=== PATIENT | female | born 1945 | race Caucasian/White ===

== ENCOUNTER 2020-08-25 09:36 | Emergency (ER) | payer MEDICARE, OTHER ==
[2020-08-25] MEDS ORDERED: Sodium Chloride 0.9% 10 ML Syringe FLUSH PRN ×2 (09:39→11:15)
[2020-08-25] MEDS ORDERED: Acetaminophen 325 MG Tab PO ONE (09:51)
[2020-08-25] MEDS ORDERED: Acetaminophen 650 MG Supp RECTAL ONE (09:59)
--- NOTE | 2020-08-25 09:59 | EDM.PDOC ---
ED HPI GENERAL MEDICAL PROBLEM - General Chief Complaint: Neuro Symptoms/Deficits Stated Complaint: VOMITTING/ABDOMINAL PAIN/SHAKING Time Seen by Provider: 08/25/20 09:39 Source of Information: Reports: Patient, Family History Limitations: Reports: Altered Mental Status - History of Present Illness INITIAL COMMENTS - FREE TEXT/NARRATIVE: The patient presents to the ER with her daughter in law. She was coming in to the clinic to be evaluated for some right flank pain. On the way to the clinic she became more confused and had generalized weakness. My nurse had a very hard time getting her out of the car. A stroke alert was called and I went right into the room. She had slurred speech and she was confused. We got her in the bed and she needed assistance. She was leaning back when we got her up. She could not really answer any of my questions She would follow commands. She had generalized weakness but no one sided weakness. She has a fever or 101. According to clinic notes he has no health problems and she is only on vitamins. Onset: Gradual Duration: Hour(s): Severity: Moderate Improves with: Reports: None Worsens with: Reports: None Associated Symptoms: Reports: Confusion, Fever/Chills - Related Data Allergies Allergy/AdvReac Type Severity Reaction Status Date / Time No Known Allergies Allergy Verified 08/25/20 09:51 Home Meds: Home Meds . [No Known Home Meds] 08/25/20 [History] ED ROS GENERAL - Review of Systems Review Of Systems: Unable To Obtain Reason Not Obtained: Patient is confused ED EXAM, NEURO - Physical Exam Exam: See Below Exam Limited By: Altered Mental Status General Appearance: Alert (but confused) Ears: Normal External Exam Nose: Normal Inspection Head Exam: Atraumatic, Normocephalic Neck: Normal Inspection Respiratory/Chest: No Respiratory Distress, Lungs Clear, Normal Breath Sounds Cardiovascular: Regular Rate, Rhythm, No Edema, No Murmur GI/Abdominal: Soft, Non-Tender, No Organomegaly, No Mass Neurological: Alert, Other (Confused and slurring her words. She also had generalized weakness with no side more weak then the other.) Extremities: Normal Inspection #1 Interpretation EKG Date: 08/25/20 Time: 09:56 Rhythm: Other (sinus tachycardia) Rate (Beats/Min): 125 Williams: LAD-Left Williams Deviation P-Wave: Present QRS: Normal ST-T: Normal QT: Normal EKG Interpretation Comments: Q waves in the inferior leads Course - Vital Signs Last Recorded V/S: Last Vital Signs Temp 98 F 08/25/20 12:00 Pulse 100 08/25/20 12:00 Resp 16 08/25/20 12:00 BP 104/47 L 08/25/20 12:00 Pulse Ox 91 L 08/25/20 12:00 - Orders/Labs/Meds Orders: Active Orders 24 hr Category Date Time Status Cardiac Monitoring [RC] . DIRECTED Care 08/25/20 09:39 Active EKG Documentation Completion [RC] STAT Care 08/25/20 09:40 Active Oxygen Therapy [RC] PRN Care 08/25/20 09:39 Active Peripheral IV Care [RC] . DIRECTED Care 08/25/20 09:40 Active CULTURE BLOOD [BC] Stat Lab 08/25/20 10:07 Received CULTURE BLOOD [BC] Stat Lab 08/25/20 10:12 Received CULTURE URINE [RM] Stat Lab 08/25/20 10:40 Received LACTIC ACID [CHEM] Stat Lab 08/25/20 12:55 Ordered Lactated Ringers [Ringers, Lactated] 1,000 ml Med 08/25/20 12:00 Active IV ASDIRECTED Sodium Chloride 0.9% [Normal Saline] 1,000 ml Med 08/25/20 10:00 Active IV ASDIRECTED Sodium Chloride 0.9% [Normal Saline] 100 ml Med 08/25/20 11:15 Active IV ASDIRECTED Sodium Chloride 0.9% [Saline Flush] Med 08/25/20 09:39 Active 10 ml FLUSH ASDIRECTED PRN Sodium Chloride 0.9% [Saline Flush] Med 08/25/20 11:15 Active 10 ml FLUSH ONETIME PRN Blood Culture x2 Reflex Set [OM.PC] Stat Oth 08/25/20 09:52 Ordered Peripheral IV Insertion Adult [OM.PC] Stat Oth 08/25/20 09:39 Ordered Medication Orders Sodium Chloride (Normal Saline) 1,000 mls @ 150 mls/hr IV ASDIRECTED GABRIELA Last Infusion: 08/25/20 10:23 Dose: 999 mls/hr Documented by: Admin: 08/25/20 10:14 Dose: 150 mls/hr Documented by: EBERELI Sodium Chloride (Normal Saline) 100 mls @ 75 mls/hr IV ASDIRECTED GABRIELA Last Admin: 08/25/20 11:47 Dose: 75 mls/hr Documented by: JENNI Lactated Ringer's (Ringers, Lactated) 1,000 mls @ 150 mls/hr IV ASDIRECTED GABRIELA Last Admin: 08/25/20 12:05 Dose: 150 mls/hr Documented by: EBERELI Sodium Chloride (Saline Flush) 10 ml FLUSH ASDIRECTED PRN PRN Reason: Keep Vein Open Last Admin: 08/25/20 10:15 Dose: 10 ml Documented by: EBERELI Sodium Chloride (Saline Flush) 10 ml FLUSH ONETIME PRN PRN Reason: IV FLUSH Last Admin: 08/25/20 11:46 Dose: 10 ml Documented by: JENNI Labs: Laboratory Tests 08/25/20 08/25/20 08/25/20 Range/Units 09:49 09:55 09:55 WBC 3.57 L (3.98-10.04) K/mm3 RBC 4.34 (3.98-5.22) M/mm3 Hgb 13.7 (11.2-15.7) gm/dl Hct 41.3 (34.1-44.9) % MCV 95.2 H (79.4-94.8) fl MCH 31.6 (25.6-32.2) pg MCHC 33.2 (32.2-35.5) g/dl RDW Std Deviation 43.2 (36.4-46.3) fL Plt Count 173 L (182-369) K/mm3 MPV 9.8 (9.4-12.3) fl Neut % (Auto) 89.9 H (34.0-71.1) % Lymph % (Auto) 9.0 L (19.3-51.7) % [place] % (Auto) 0.8 L (4.7-12.5) % Eos % (Auto) 0 L (0.7-5.8) Baso % (Auto) 0.0 L (0.1-1.2) % Neut # (Auto) 3.21 (1.56-6.13) K/mm3 Lymph # (Auto) 0.32 L (1.18-3.74) K/mm3 [place] # (Auto) 0.03 L (0.24-0.36) K/mm3 Eos # (Auto) 0.00 L (0.04-0.36) K/mm3 Baso # (Auto) 0.00 L (0.01-0.08) K/mm3 Manual Slide Review Abnormal smear PT 10.9 (9.7-12.0) SECONDS INR 1.02 APTT 20.9 L (21.7-31.4) SECONDS D-Dimer, Quantitative 4.01 H (0.19-0.50) mg/L Sodium (136-145) mEq/L Potassium (3.5-5.1) mEq/L Chloride (98-107) mEq/L Carbon Dioxide (21-32) mEq/L Anion Gap (5-15) BUN (7-18) mg/dL Creatinine (0.55-1.02) mg/dL Est Cr Clr Drug Dosing Estimated GFR (MDRD) (>60) mL/min BUN/Creatinine Ratio (14-18) Glucose (83-115) mg/dL Lactic Acid (0.4-2.0) mmol/L Calcium (8.5-10.1) mg/dL Magnesium (1.8-2.4) mg/dl Ferritin (8-252) ng/ml Total Bilirubin (0.2-1.0) mg/dL AST (15-37) U/L ALT (14-59) U/L Alkaline Phosphatase (46-116) U/L Lactate Dehydrogenase (81-234) U/L Troponin I (0.00-0.056) ng/mL C-Reactive Protein (<1.0) mg/dL Total Protein (6.4-8.2) g/dl Albumin (3.4-5.0) g/dl Globulin gm/dL Albumin/Globulin Ratio (1-2) Lipase (73-393) U/L Urine Color (Yellow) Urine Appearance (Clear) Urine pH (5.0-8.0) Ur Specific [address] (1.005-1.030) Urine Protein (Negative) Urine Glucose (UA) (Negative) Urine Ketones (Negative) Urine Occult Blood (Negative) Urine Nitrite (Negative) Urine Bilirubin (Negative) Urine Urobilinogen (0.2-1.0) Ur Leukocyte Esterase (Negative) U Hyaline Cast (Auto) (0-5) /lpf Urine RBC (0-5) /hpf Urine WBC (0-5) /hpf Urine WBC Clumps (NOT SEEN) /hpf Ur Epithelial Cells (0-5) /hpf Urine Bacteria (FEW) /hpf Urine Mucus (FEW) /hpf Urine Opiates Screen (RHQCBW=808) Ur Buprenorphine Scrn (CUTOFF=10) Ur Oxycodone Screen (XLX6NG=851) Urine Methadone Screen (WTECCR=886) Ur Propoxyphene Screen (CZHHQE=565) Ur Barbiturates Screen (KFJCNQ=150) Ur Tricyclics Screen (UMVOVM=552) Ur Phencyclidine Scrn (CUTOFF=25) Ur Amphetamine Screen (DQEMEB=362) U Methamphetamines Scrn (IFKBKK=402) U Benzodiazepines Scrn (CPPCPO=879) U Cocaine Metab Screen (GXMTUJ=700) U Marijuana (THC) Screen (CUTOFF=50) Ethyl Alcohol (0.00) gm% Influenza Type A RNA Negative (NEGATIVE) Influenza Type B RNA Negative (NEGATIVE) SARS-CoV-2 RNA (KIMBERLY) Positive H (NEGATIVE) 08/25/20 08/25/20 08/25/20 Range/Units 09:55 09:55 09:55 WBC (3.98-10.04) K/mm3 RBC (3.98-5.22) M/mm3 Hgb (11.2-15.7) gm/dl Hct (34.1-44.9) % MCV (79.4-94.8) fl MCH (25.6-32.2) pg MCHC (32.2-35.5) g/dl RDW Std Deviation (36.4-46.3) fL Plt Count (182-369) K/mm3 MPV (9.4-12.3) fl Neut % (Auto) (34.0-71.1) % Lymph % (Auto) (19.3-51.7) % [place] % (Auto) (4.7-12.5) % Eos % (Auto) (0.7-5.8) Baso % (Auto) (0.1-1.2) % Neut # (Auto) (1.56-6.13) K/mm3 Lymph # (Auto) (1.18-3.74) K/mm3 [place] # (Auto) (0.24-0.36) K/mm3 Eos # (Auto) (0.04-0.36) K/mm3 Baso # (Auto) (0.01-0.08) K/mm3 Manual Slide Review PT (9.7-12.0) SECONDS INR APTT (21.7-31.4) SECONDS D-Dimer, Quantitative (0.19-0.50) mg/L Sodium 139 (136-145) mEq/L Potassium 4.1 (3.5-5.1) mEq/L Chloride 104 (98-107) mEq/L Carbon Dioxide 28 (21-32) mEq/L Anion Gap 11.1 (5-15) BUN 13 (7-18) mg/dL Creatinine 1.1 H (0.55-1.02) mg/dL Est Cr Clr Drug Dosing TNP Estimated GFR (MDRD) 49 (>60) mL/min BUN/Creatinine Ratio 11.8 L (14-18) Glucose 114 (83-115) mg/dL Lactic Acid 2.1 H* (0.4-2.0) mmol/L Calcium 9.5 (8.5-10.1) mg/dL Magnesium 1.5 L (1.8-2.4) mg/dl Ferritin (8-252) ng/ml Total Bilirubin 1.1 H (0.2-1.0) mg/dL AST 23 (15-37) U/L ALT 22 (14-59) U/L Alkaline Phosphatase 111 (46-116) U/L Lactate Dehydrogenase 238 H (81-234) U/L Troponin I < 0.017 (0.00-0.056) ng/mL C-Reactive Protein 3.1 H* (<1.0) mg/dL Total Protein 6.6 (6.4-8.2) g/dl Albumin 3.7 (3.4-5.0) g/dl Globulin 2.9 gm/dL Albumin/Globulin Ratio 1.3 (1-2) Lipase 110 (73-393) U/L Urine Color (Yellow) Urine Appearance (Clear) Urine pH (5.0-8.0) Ur Specific [address] (1.005-1.030) Urine Protein (Negative) Urine Glucose (UA) (Negative) Urine Ketones (Negative) Urine Occult Blood (Negative) Urine Nitrite (Negative) Urine Bilirubin (Negative) Urine Urobilinogen (0.2-1.0) Ur Leukocyte Esterase (Negative) U Hyaline Cast (Auto) (0-5) /lpf Urine RBC (0-5) /hpf Urine WBC (0-5) /hpf Urine WBC Clumps (NOT SEEN) /hpf Ur Epithelial Cells (0-5) /hpf Urine Bacteria (FEW) /hpf Urine Mucus (FEW) /hpf Urine Opiates Screen (ZVTUGV=410) Ur Buprenorphine Scrn (CUTOFF=10) Ur Oxycodone Screen (ELA5ZZ=599) Urine Methadone Screen (IMGJES=472) Ur Propoxyphene Screen (OFWKQD=761) Ur Barbiturates Screen (SHQQCS=662) Ur Tricyclics Screen (SKKPKL=271) Ur Phencyclidine Scrn (CUTOFF=25) Ur Amphetamine Screen (XVETNQ=196) U Methamphetamines Scrn (ALUCOU=382) U Benzodiazepines Scrn (XPBFAF=918) U Cocaine Metab Screen (HTMQOY=439) U Marijuana (THC) Screen (CUTOFF=50) Ethyl Alcohol 0.00 (0.00) gm% Influenza Type A RNA (NEGATIVE) Influenza Type B RNA (NEGATIVE) SARS-CoV-2 RNA (KIMBERLY) (NEGATIVE) 08/25/20 08/25/20 08/25/20 Range/Units 09:55 10:30 10:30 WBC (3.98-10.04) K/mm3 RBC (3.98-5.22) M/mm3 Hgb (11.2-15.7) gm/dl Hct (34.1-44.9) % MCV (79.4-94.8) fl MCH (25.6-32.2) pg MCHC (32.2-35.5) g/dl RDW Std Deviation (36.4-46.3) fL Plt Count (182-369) K/mm3 MPV (9.4-12.3) fl Neut % (Auto) (34.0-71.1) % Lymph % (Auto) (19.3-51.7) % [place] % (Auto) (4.7-12.5) % Eos % (Auto) (0.7-5.8) Baso % (Auto) (0.1-1.2) % Neut # (Auto) (1.56-6.13) K/mm3 Lymph # (Auto) (1.18-3.74) K/mm3 [place] # (Auto) (0.24-0.36) K/mm3 Eos # (Auto) (0.04-0.36) K/mm3 Baso # (Auto) (0.01-0.08) K/mm3 Manual Slide Review PT (9.7-12.0) SECONDS INR APTT (21.7-31.4) SECONDS D-Dimer, Quantitative (0.19-0.50) mg/L Sodium (136-145) mEq/L Potassium (3.5-5.1) mEq/L Chloride (98-107) mEq/L Carbon Dioxide (21-32) mEq/L Anion Gap (5-15) BUN (7-18) mg/dL Creatinine (0.55-1.02) mg/dL Est Cr Clr Drug Dosing Estimated GFR (MDRD) (>60) mL/min BUN/Creatinine Ratio (14-18) Glucose (83-115) mg/dL Lactic Acid (0.4-2.0) mmol/L Calcium (8.5-10.1) mg/dL Magnesium (1.8-2.4) mg/dl Ferritin 105 (8-252) ng/ml Total Bilirubin (0.2-1.0) mg/dL AST (15-37) U/L ALT (14-59) U/L Alkaline Phosphatase (46-116) U/L Lactate Dehydrogenase (81-234) U/L Troponin I (0.00-0.056) ng/mL C-Reactive Protein (<1.0) mg/dL Total Protein (6.4-8.2) g/dl Albumin (3.4-5.0) g/dl Globulin gm/dL Albumin/Globulin Ratio (1-2) Lipase (73-393) U/L Urine Color [place] H (Yellow) Urine Appearance Slt cloudy H (Clear) Urine pH 8.5 H (5.0-8.0) Ur Specific [address] 1.020 (1.005-1.030) Urine Protein 2+ H (Negative) Urine Glucose (UA) Negative (Negative) Urine Ketones 1+ H (Negative) Urine Occult Blood 3+ H (Negative) Urine Nitrite Positive H (Negative) Urine Bilirubin Negative (Negative) Urine Urobilinogen 0.2 (0.2-1.0) Ur Leukocyte Esterase 1+ H (Negative) U Hyaline Cast (Auto) 0-5 (0-5) /lpf Urine RBC 75-100 H (0-5) /hpf Urine WBC 10-20 H (0-5) /hpf Urine WBC Clumps Few (NOT SEEN) /hpf Ur Epithelial Cells 0-5 (0-5) /hpf Urine Bacteria Moderate H (FEW) /hpf Urine Mucus Not seen (FEW) /hpf Urine Opiates Screen Negative (XNGCQS=672) Ur Buprenorphine Scrn Negative (CUTOFF=10) Ur Oxycodone Screen Negative (LAZ2OS=323) Urine Methadone Screen Negative (LKGWTJ=329) Ur Propoxyphene Screen Negative (BHTEKM=183) Ur Barbiturates Screen Negative (QWNFWT=176) Ur Tricyclics Screen Negative (VSVXVN=982) Ur Phencyclidine Scrn Negative (CUTOFF=25) Ur Amphetamine Screen Negative (OLVHKS=560) U Methamphetamines Scrn Negative (YOEJUU=098) U Benzodiazepines Scrn Negative (PTHGXJ=261) U Cocaine Metab Screen Negative (CAZWAI=236) U Marijuana (THC) Screen Negative (CUTOFF=50) Ethyl Alcohol (0.00) gm% Influenza Type A RNA (NEGATIVE) Influenza Type B RNA (NEGATIVE) SARS-CoV-2 RNA (KIMBERLY) (NEGATIVE) Meds: Medications Generic Name Dose Route Start Last Admin Trade Name Freq PRN Reason Stop Dose Admin Sodium Chloride 1,000 mls @ 150 mls/hr 08/25/20 10:00 08/25/20 10:23 Normal Saline IV 999 mls/hr ASDIRECTED GABRIELA Infusion Sodium Chloride 100 mls @ 75 mls/hr 08/25/20 11:15 08/25/20 11:47 Normal Saline IV 75 mls/hr ASDIRECTED GABRIELA Administration Lactated Ringer's 1,000 mls @ 150 mls/hr 08/25/20 12:00 08/25/20 12:05 Ringers, Lactated IV 150 mls/hr ASDIRECTED GABRIELA Administration Sodium Chloride 10 ml 08/25/20 09:39 08/25/20 10:15 Saline Flush FLUSH 10 ml ASDIRECTED PRN Administration Keep Vein Open Sodium Chloride 10 ml 08/25/20 11:15 08/25/20 11:46 Saline Flush FLUSH 10 ml ONETIME PRN Administration IV FLUSH Discontinued Medications Generic Name Dose Route Start Last Admin Trade Name Ladi PRN Reason Stop Dose Admin Acetaminophen 975 mg 08/25/20 09:51 08/25/20 10:06 Tylenol PO 08/25/20 09:52 Not Given NOW ONE Acetaminophen 650 mg 08/25/20 09:59 08/25/20 10:23 Tylenol RECTAL 08/25/20 10:00 650 mg NOW ONE Administration Sodium Chloride 1,000 mls @ 1,000 mls/hr 08/25/20 10:16 08/25/20 10:24 Normal Saline IV 08/25/20 11:15 Not Given ONETIME ONE Ceftriaxone Sodium 2 gm/ 100 mls @ 200 mls/hr 08/25/20 10:50 08/25/20 11:07 Sodium Chloride IV 08/25/20 11:19 200 mls/hr ONETIME ONE Administration Lactated Ringer's Confirm 08/25/20 12:01 08/25/20 12:04 Ringers, Lactated Administered 08/25/20 12:02 Not Given Dose 1,000 mls @ as directed .ROUTE .STK-MED ONE Iopamidol 100 ml 08/25/20 11:15 08/25/20 11:46 Isovue-370 (76%) IVPUSH 08/25/20 11:16 100 ml ONETIME ONE Administration Ondansetron HCl 4 mg 08/25/20 10:02 08/25/20 10:14 Zofran IVPUSH 08/25/20 10:03 4 mg ONETIME ONE Administration Ondansetron HCl Confirm 08/25/20 10:02 08/25/20 10:06 Zofran Administered 08/25/20 10:03 Not Given Dose 4 mg .ROUTE .STK-MED ONE - Re-Assessments/Exams Free Text/Narrative Re-Assessment/Exam: 08/25/20 10:14 A stroke alert was called. The patient's last time known well was about 15 minutes before arrival. I ordered an EKG, CT of her head, CXR, labs, blood cultures. lactic acid, COVID 19, UA and tylenol. She did start vomiting so I ordered zofran 4mg IV. 08/25/20 11:38 Her WBC was low at 3.57. Her D-dimer was elevated at 4.01. Her creatinine is elevated at 1.1. Her lactic acid is elevated at 2.1. Her magnesium is low at 1.5. Her LDH is elevated at 238. Her troponin is negative. Her CRP is elevated at 3.1. Her lipase is normal. Her UA is positive for UTI. Her UDS is negative and her ETOH is 0. Her flu is negative. She is COVID positive. She was diagnosed with COVID back in June so I feel she is positive but not having active disease. Her CXR looks good. She does have a UTI and sepsis. I ordered a CT of her abdomen and pelvis and she has a 5mm proximal left ureteral stone. Other findings believed to be nonacute. Her D-dimer is elevated at 4.01. Her oxygen saturations were also low at 84% and she required oxygen. I have ordered a CT angio of her chest. I am waiting for that now. I also gave her rocephin 2 grams IV after the blood cultures. The CT of her head shows nothing acute. 08/25/20 12:[address] angio of her chest shows no findings of pulmonary embolism. Other findings believed to be nonacute. The patient needs to be admitted but needs to be where there is a urologist. I will try [facility] in [place]. 08/25/20 12:[address] Slaughter the hospitalist and he accepted the patient. Departure - Departure Time of Disposition: 12:50 Disposition: DC/Tfer to [facility] 02 Condition: Serious Clinical Impression: Ureteral colic, Ureteral calculus, left Sepsis Qualifiers: Sepsis type: sepsis due to unspecified organism Sepsis acute organ dysfunction status: unspecified Qualified Code(s): A41.9 - Sepsis, unspecified organism UTI (urinary tract infection) Qualifiers: Urinary tract infection type: acute cystitis Hematuria presence: with hematuria Qualified Code(s): N30.01 - Acute cystitis with hematuria - Discharge Information Referrals: Dilma Zarate MD [Primary Care Provider] - Forms: ED Department Discharge Sepsis Event Note (ED) - Evaluation Sepsis Screening Result: No Definite Risk - Focused Exam Vital Signs: Vital Signs Temp Temp Pulse Resp BP Pulse Ox 08/25/20 12:00 98 F 100 16 104/47 L 91 L 08/25/20 10:53 99.7 F 08/25/20 10:45 100.2 F 100 18 113/95 H 94 L 12/09/20 10:23 101.2 F H 08/25/20 09:40 101.2 F H 126 H 30 H 127/72 90 L - My Orders Last 24 Hours: My Active Orders 08/25/20 09:39 Cardiac Monitoring [RC] . DIRECTED Oxygen Therapy [RC] PRN Sodium Chloride 0.9% [Saline Flush] 10 ml FLUSH ASDIRECTED PRN Peripheral IV Insertion Adult [OM.PC] Stat 08/25/20 09:40 EKG Documentation Completion [RC] STAT Peripheral IV Care [RC] . DIRECTED 08/25/20 09:52 Blood Culture x2 Reflex Set [OM.PC] Stat 08/25/20 10:00 Sodium Chloride 0.9% [Normal Saline] 1,000 ml IV ASDIRECTED 08/25/20 10:07 CULTURE BLOOD [BC] Stat 08/25/20 10:12 CULTURE BLOOD [BC] Stat 08/25/20 10:40 CULTURE URINE [RM] Stat 08/25/20 11:15 Sodium Chloride 0.9% [Normal Saline] 100 ml IV ASDIRECTED Sodium Chloride 0.9% [Saline Flush] 10 ml FLUSH ONETIME PRN 08/25/20 12:00 Lactated Ringers [Ringers, Lactated] 1,000 ml IV ASDIRECTED 08/25/20 12:55 LACTIC ACID [CHEM] Stat - Assessment/Plan Last 24 Hours: My Active Orders 08/25/20 09:39 Cardiac Monitoring [RC] . DIRECTED Oxygen Therapy [RC] PRN Sodium Chloride 0.9% [Saline Flush] 10 ml FLUSH ASDIRECTED PRN Peripheral IV Insertion Adult [OM.PC] Stat 08/25/20 09:40 EKG Documentation Completion [RC] STAT Peripheral IV Care [RC] . DIRECTED 08/25/20 09:52 Blood Culture x2 Reflex Set [OM.PC] Stat 08/25/20 10:00 Sodium Chloride 0.9% [Normal Saline] 1,000 ml IV ASDIRECTED 08/25/20 10:07 CULTURE BLOOD [BC] Stat 08/25/20 10:12 CULTURE BLOOD [BC] Stat 08/25/20 10:40 CULTURE URINE [RM] Stat 08/25/20 11:15 Sodium Chloride 0.9% [Normal Saline] 100 ml IV ASDIRECTED Sodium Chloride 0.9% [Saline Flush] 10 ml FLUSH ONETIME PRN 08/25/20 12:00 Lactated Ringers [Ringers, Lactated] 1,000 ml IV ASDIRECTED 08/25/20 12:55 LACTIC ACID [CHEM] Stat
[2020-08-25] MEDS ORDERED: Sodium Chloride 0.9% 1,000 ML IV SCH (10:00)
[2020-08-25] MEDS ORDERED: Ondansetron 4 MG/2 ML SDV ONE (10:02)
[2020-08-25] MEDS ORDERED: Ondansetron 4 MG/2 ML SDV IVPUSH ONE (10:02)
--- NOTE | 2020-08-25 10:06 | CT ---
Head CT Technique: Multiple axial sections through the brain were obtained. Intravenous contrast was not utilized. Comparison: No prior intracranial imaging is available. Findings: Mild motion artifact is present. Intracranial: Ventricles along with basal cisterns and sulci over the convexities are mildly prominent. Scattered areas of diminished density are seen within the periventricular and subcortical white matter which is most likely due to small vessel ischemic demyelination change. No other abnormal parenchymal densities are definitely appreciated. There is no evidence of intracranial hemorrhage. No midline shift or mass-effect is appreciated. Osseous: Mild areas of mucosal thickening and retention cyst are seen within both sides of the sphenoid sinus. Mild nasal septal deviation is seen. Mastoid sinuses are clear as seen. No acute calvarial abnormality is appreciated. Impression: 1. Senescent change as noted above and mild motion artifact. 2. Nothing acute is definitely appreciated. Diagnostic code #2
[2020-08-25] MEDS ORDERED: Sodium Chloride 0.9% 1,000 ML IV ONE (10:16)
[2020-08-25 10:35] LABS: CORONAVIRUS COVID-19 NAA POSITIVE (NEGATIVE)
--- NOTE | 2020-08-25 10:37 | CR ---
Chest: Portable view of the chest was obtained. Comparison: No previous chest imaging is available. Findings: Heart size and mediastinum: Heart size and mediastinum are normal limits for portable technique. Lungs: Lung markings are slightly increased which most likely is chronic. No acute parenchymal change is suspected. No pleural effusions are seen. Osseous: Bony structures are osteopenic. Mild degenerative change is appreciated within the spine. Surgical clips are seen within the left axillary region. Impression: 1. Findings as noted above. 2. Nothing acute is definitely appreciated. Diagnostic code #2
[2020-08-25] MEDS ORDERED: cefTRIAXone 2 GM in Sodium Chloride 0.9% 100 ML IV ONE (10:50)
[2020-08-25] MEDS ORDERED: Sodium Chloride 0.9% 100 ML IV SCH (11:15)
[2020-08-25] MEDS ORDERED: Iopamidol 755 Mg/ML 100 ML Bottle IVPUSH ONE (11:15)
--- NOTE | 2020-08-25 11:28 | CT ---
CT abdomen and pelvis Technique: Multiple axial sections were obtained from above the dome of the diaphragm inferiorly through the pubic symphysis. Intravenous and oral contrast was not utilized. Study has been performed as a ureteral stone protocol. Reconstructed coronal and sagittal images were obtained. Comparison: No prior abdominal imaging is available. Findings: Kidneys: Right kidney shows no hydronephrosis or mass. No right-sided ureteral dilatation is seen. There is a very small calcification within the inferior right kidney compatible with nonobstructing stone. Left kidney shows a low density cyst measuring 2.5 cm within its midpole. Left renal pelvis is dilated. Findings are compatible with a proximal left ureteral stone measuring about 5 mm. Lung bases: Nothing acute is appreciated. Liver and spleen: Noncontrast appearance of the liver and spleen show no discrete abnormality. Gallbladder shows multiple gallstones. Adrenal glands: Low density nodules are seen within both adrenal glands. Largest finding is on the left side measuring 3.1 cm. These findings are most likely benign and due to adrenal adenomas. Pancreas: Pancreas is somewhat atrophied without other discrete abnormality being seen. Aorta, retroperitoneum and mesenteric: Aorta shows atherosclerotic calcification which continues into the iliac vessels. No aneurysm is seen. No retroperitoneal adenopathy or mesenteric abnormalities are appreciated. Very small umbilical hernia is seen containing fat. Pelvis: Air identified within the bladder. No pelvic mass or adenopathy is seen. Bowel: Appendix is felt to be visualized and is normal in size. No definite bowel dilatation is seen. Osseous: Mild scattered osteophytes are seen as well as vacuum phenomena within the L5-S1 apophyseal joints. No definite acute osseous finding is appreciated. Impression: 1. 5 mm proximal left ureteral stone. 2. Other renal findings as noted above. 3. Other findings believed to be nonacute. Diagnostic code #3
--- NOTE | 2020-08-25 11:58 | CT ---
CT chest Technique: Multiple axial sections through the chest were obtained. Intravenous contrast was utilized. Study was performed as a pulmonary angiogram protocol. Reconstructed coronal and sagittal images were also obtained. Comparison: No prior chest CT, previous chest x-ray performed earlier on the same day. Findings: Pulmonary arteries are well opacified. No filling defects are seen to indicate pulmonary embolism. Mediastinum and heart: Thoracic aorta shows mild atherosclerotic calcification without aneurysm. No pericardial effusion is seen. No mediastinal mass is seen. Soft tissues: Prior left mastectomy is noted. Surgical clips are noted from prior left sided axillary node dissection. Visualized upper abdominal structures: Dilated left renal pelvis is seen with left renal cyst. Low density bilateral adrenal masses are again noted compatible with adrenal adenomas. Lungs: Mild peripheral fibrosis compatible with previous breast surgery. Very minimal atelectasis along the dependent aspects of both lung bases. No acute parenchymal change is seen. Osseous: Scattered disc space narrowing and endplate spurring is seen within the spine. Old healed fracture is noted within the mid sternum. No acute finding is definitely appreciated within the osseous structures. Impression: 1. No findings of pulmonary embolism. 2. Other findings believed to be nonacute as noted above. Diagnostic code #2
[2020-08-25] MEDS ORDERED: Lactated Ringers 1,000 ML IV SCH (12:00)
[2020-08-25] MEDS ORDERED: Lactated Ringers 1,000 ML ONE (12:01)
[2020-08-25] MEDS ORDERED: Ibuprofen 600 MG Tab PO ONE (13:12)
== END 2020-08-25 14:00 ==
LOC: JD.ED 09:36
DX: A41.9 Sepsis, unspecified organism (principal); U07.1 COVID-19; N30.01 Acute cystitis with hematuria; N20.2 Calculus of kidney with calculus of ureter
CPT/HCPCS: 0240U; 36415; 70450; 70450-26; 71045; 71045-26; 71275; 71275-26; 74176; 74176-26; 80053; 80306; 80307; 81001; 82728; 83605; 83615; 83690; 83735; 84484; 85025; 85379; 85610; 85730; 86140; 87040; 87077; 87086; 87088; 87186; 93005; 93010; 96365; 96375; 99285; 99285-25; A9270-GY; J0696; J2405; J7030; J7050; J7120; Q9967

== ENCOUNTER 2021-02-03 08:29 | Day surgery (SDC) | payer MEDICARE, OTHER ==
[~2021-02-03 08:29] MED LIST: Lactated Ringers 1,000 ML IV SCH; Lidocaine 1%/Sod Bicarbonate in NS 8.4% 1 ML Syringe IDERM PRN; Sodium Chloride 0.9% 10 ML Syringe FLUSH PRN
[2021-02-03] MEDS ORDERED: Propofol 200 MG/20 ML SDV ONE ×2 (09:18→09:21)
--- NOTE | 2021-02-03 09:20 | PCM.PREANE ---
Preanesthetic Assessment - Procedure Proposed Procedure: Diagnostic Colonoscopy - Anesthesia/Transfusion/Family Hx Anesthesia History: Prior Anesthesia Without Reaction Family History of Anesthesia Reaction: No Intubation History: Unknown - Review of Systems General: No Symptoms Pulmonary: No Symptoms Cardiovascular: No Symptoms Gastrointestinal: No Symptoms Neurological: No Symptoms Other: Reports: None - Physical Assessment NPO Status Date: 02/03/21 NPO Status Time: 05:30 (Prep) Weight: 63.7 kg ASA Class: 2 Mental Status: Alert & Oriented x3 Airway Class: Mallampati = 3 Dentition: Reports: Dentures Thyro-Mental Finger Breadths: 2 Mouth Opening Finger Breadths: 3 ROM/Head Extension: Full Lungs: Clear to Auscultation, Normal Respiratory Effort Cardiovascular: Regular Rate, Regular Rhythm - Allergies Allergies/Adverse Reactions: Allergies Allergy/AdvReac Type Severity Reaction Status Date / Time No Known Allergies Allergy Verified 02/02/21 10:59 - Anesthesia Plan Pre-Op Medication Ordered: None - Acknowledgements Anesthesia Type Planned: MAC Pt an Appropriate Candidate for the Planned Anesthesia: Yes Alternatives and Risks of Anesthesia Discussed w Pt/Guardian: Yes Pt/Guardian Understands and Agrees with Anesthesia Plan: Yes PreAnesthesia Questionnaire HEENT History: Reports: Impaired Vision, Other (See Below) Other HEENT History: wears dentures, oral candidiasis Cardiovascular History: Reports: Other (See Below) Other Cardiovascular History: abnormal ekg Respiratory History: Reports: None Gastrointestinal History: Reports: Colon Polyp Genitourinary History: Reports: Renal Calculus, UTI, Recurrent MEDICATION SPECIALIST History: Reports: None Musculoskeletal History: Reports: Osteoporosis, Other (See Below) Other Musculoskeletal History: bilateral leg/foot pain, right knee pain, leg cramps, myalgias Neurological History: Reports: None Psychiatric History: Reports: None Endocrine/Metabolic History: Reports: None Hematologic History: Reports: Other (See Below) Other Hematologic History: decreased magnesium, decreased potassium Immunologic History: Reports: None Oncologic (Cancer) History: Reports: Breast Dermatologic History: Reports: None - Past Surgical History Head Surgeries/Procedures: Reports: None HEENT Surgical History: Reports: Cataract Surgery Cardiovascular Surgical History: Reports: None Respiratory Surgical History: Reports: None GI Surgical History: Reports: Colonoscopy Female Surgical History: Reports: Mastectomy Male Surgical History: Reports: None Endocrine Surgical History: Reports: None Neurological Surgical History: Reports: None Musculoskeletal Surgical History: Reports: None Oncologic Surgical History: Reports: Mastectomy Dermatological Surgical History: Reports: None - SUBSTANCE USE Tobacco Use Status *Q: Never Tobacco User Recreational Drug Use History: No - HOME MEDS Home Medications: Home Meds Calcium Carbonate [Calcium] 600 mg PO DAILY 02/02/21 [History] Cholecalciferol (Vitamin D3) [Vitamin D3] 5,000 unit PO DAILY 02/02/21 [History] Cyanocobalamin (Vitamin B-12) [Vitamin B-12] 100 mcg PO DAILY 02/02/21 [History] Magnesium Chloride [Slow-Mag] 71.5 mg PO DAILY 02/02/21 [History] - CURRENT (IN HOUSE) MEDS Current Meds: Current Medications Lactated Ringer's (Ringers, Lactated) 1,000 mls @ 125 mls/hr IV ASDIRECTED GABRIELA Stop: 02/03/21 23:00 Lidocaine/Sodium Bicarbonate (Lidocaine 1%/Sod Bicarbonate In Ns 8.4% 1 Ml Syringe) 0.25 ml IDERM ONETIME PRN PRN Reason: Prior to IV Start Stop: 02/03/21 18:00 Sodium Chloride (Sodium Chloride 0.9% 10 Ml Syringe) 10 ml FLUSH ASDIRECTED PRN PRN Reason: Keep Vein Open Stop: 02/03/21 18:00
--- NOTE | 2021-02-03 10:23 | PCM48HPAN ---
Post Anesthesia Note - EVALUATION WITHIN 48HRS OF ANESTHETIC Vital Signs in Normal Range: Yes Patient Participated in Evaluation: Yes Respiratory Function Stable: Yes Airway Patent: Yes Cardiovascular Function Stable: Yes Hydration Status Stable: Yes Pain Control Satisfactory: Yes Nausea and Vomiting Control Satisfactory: Yes Mental Status Recovered: Yes
--- NOTE | 2021-02-03 10:24 | PCM.PRNOTE ---
- Free Text/Narrative Note: Date: 02/03/2021 Procedure: screening colonoscopy Indication: history of polyps. Last scope supposedly in 2018 but there are no available records to confirm this. Endoscopist: Ld Tenorio MD Findings: redundant colon. Excellent prep. Several small polyps that looked like hyperplastic polyps removed between sigmoid colon and anorectal sphincter complex; 12 total. One lesion was slightly larger and sessile near the recto- sigmoid junction. Detailed Report: The patient was taken to the endoscopy suite and placed in left lateral decubitus position. Time out was performed and monitored anesthesia care initiated. The anus appeared normal. Digital rectal exam was unremarkable. The colonoscope was inserted and advanced to the cecum. The colon was fairly redundant. The appendiceal orifice was seen and the terminal ileum visualized. The prep was excellent. No abnormalities were noted until the sigmoid colon was reached. From about 30 cm from the verge to just above the sphincter, several small polyps that looked grossly consistent with hyperplastic polyps were identified and removed. Twelve total were removed. One lesion was slightly larger, 1 cm, sessile, and near what appeared to be the rectosigmoid junction. All biopsies were performed with cold forceps. Air was suctioned from the distal colon and rectum and the scope was withdrawn. The patient tolerated the procedure well.
== END 2021-02-03 10:54 | disposition home or self-care (01) ==
LOC: JD.SDS 08:29
PROVIDERS: ATTEND Surgery
DX: Z12.11 Encounter for screening for malignant neoplasm of colon (principal); D12.5 Benign neoplasm of sigmoid colon; D12.8 Benign neoplasm of rectum; E87.6 Hypokalemia; Z79.899 Other long term (current) drug therapy; Z98.890 Other specified postprocedural states
CPT/HCPCS: 45380; 88305; J2704; J7120; 00812

== ENCOUNTER 2024-02-05 07:54 | Day surgery (SDC) | payer MEDICARE ==
[~2024-02-05 07:54] MED LIST changes: -Lactated Ringers 1,000 ML IV SCH; -Lidocaine 1%/Sod Bicarbonate in NS 8.4% 1 ML Syringe IDERM PRN; +Sodium Chloride 0.9% 10 ML Syringe FLUSH SCH
[2024-02-05] MEDS ORDERED: Propofol 200 MG/20 ML SDV ONE ×3 (08:28→09:23)
[2024-02-05] MEDS ORDERED: Lidocaine 2% 5 ML SDV ONE (08:30)
[2024-02-05] MEDS: Lactated Ringers 1,000 ML IV SCH (09:32)
== END 2024-02-05 10:10 | disposition home or self-care (01) ==
LOC: JD.SDS 07:54
PROVIDERS: ATTEND Surgery
DX: Z12.11 Encounter for screening for malignant neoplasm of colon (principal); D12.0 Benign neoplasm of cecum; D12.2 Benign neoplasm of ascending colon; D12.4 Benign neoplasm of descending colon; K62.1 Rectal polyp; Z86.010 Personal history of colon polyps
CPT/HCPCS: 00811; 99100; J2704; J3490; J7120

== ENCOUNTER → 2024-12-11 | Day surgery (SDC) | payer MEDICARE ==
[~2024-12-11] MED LIST changes: +Morphine 8 MG, EPINEPHrine 0.3 MG, Cefuroxime 750 MG, Ketorolac 30 MG, Sodium Chloride ... PRN; +Propofol 200 MG/20 ML SDV ONE; +Tranexamic Acid 1,000 MG/10 ML Vial ONE; +VANCOmycin 1 GM SDV ONE; +ceFAZolin 2 GM Vial ONE
[2024-12-11] MEDS: Lactated Ringers 1,000 ML IV SCH (06:50)
[2024-12-11 08:51] LABS: BASOPHILS PERCENT AUTO 0.4 % (0.0-1.0); EOSINOPHILS ABSOLUTE AUTO 0.1 K/mm3 (0.0-0.4); EOSINOPHILS PERCENT AUTO 1.5 % (0.0-6.0); HEMATOCRIT 40.1 % (37.0-47.0); HEMOGLOBIN 13.6 gm/dl (12.0-16.0); IMMATURE GRAN ABSOLUTE AUTO 0.02 K/mm3 (0.00-0.05); IMMATURE GRAN PERCENT AUTO 0.4 % (0.0-0.4); LYMPHOCYTES ABSOLUTE AUTO 1.8 K/mm3 (1.0-4.8); LYMPHOCYTES PERCENT AUTO 32.9 % (24.0-44.0); MEAN CORPUSCULAR HGB CONC 33.9 g/dl (32.0-36.0); MEAN CORPUSCULAR VOLUME 97.3 fl (83.0-99.0); MEAN PLATELET VOLUME 10.6 fl (9.4-12.3); MONOCYTES ABSOLUTE AUTO 0.5 K/mm3 (0.0-0.8); MONOCYTES PERCENT AUTO 10.2 % (0.0-8.0); NEUTROPHILS ABSOLUTE AUTO 2.9 K/mm3 (1.8-7.7); NEUTROPHILS PERCENT AUTO 54.6 % (41.0-71.0); PLATELET COUNT,PLT 197 K/mm3 (150-400); RED BLOOD CELL COUNT 4.12 M/mm3 (4.10-5.30); WHITE BLOOD CELL COUNT,WBC 5.32 K/mm3 (3.9-11.3)
== END | disposition home or self-care (01) ==
LOC: JD.SDS 06:07
PROVIDERS: ATTEND Orthopaedic Surgery
DX: M16.11 Unilateral primary osteoarthritis, right hip (principal); Z53.8 Procedure and treatment not carried out for other reasons
CPT/HCPCS: 36415; 85025; 96360; 96361; J7120; J0690; J2704